=== PATIENT | female | born 1980 | race Caucasian/White ===

== ENCOUNTER 2017-12-06 08:40 | Emergency (ER) | payer MEDICAID, OTHER ==
[~2017-12-06] VITALS: Ht 160 cm; Wt 75.0 kg
[~2017-12-06 08:40] MED LIST: GUAI120L55 PO; HYDR-569 PO; METH4TAB81 PO; METH500T PO; NAPR-56 PO; TRAZ50TA54 PO
[2017-12-06] MEDS ORDERED: ONDA4TAB6 PO (09:13)
[2017-12-06] MEDS ORDERED: GABA-532 PO (09:13)
[2017-12-06] MEDS ORDERED: normal saline 1000ML IV soln IVB ONE (09:15)
[2017-12-06] MEDS ORDERED: ondansetron/PF 4mg/2ml inj IV ONE (09:15)
[2017-12-06] MEDS ORDERED: gabapentin 400mg capsule PO ONE (09:15)
[2017-12-06 09:30] LABS: BASOPHILS # (AUTO) 0.1 X10'3 (0-0.2); BASOPHILS % (AUTO) 0.9 % (0-1); EOSINOPHILS % (AUTO) 0.3 % (0-6); HEMATOCRIT 42.2 % (35.0-45.0); HEMOGLOBIN 14.5 g/dl (12.0-16.0); LYMPHOCYTES % (AUTO) 22.9 % (21-51); MEAN CORPUSCULAR HEMOGLOBIN 32.1 PG (27.0-31.0); MEAN CORPUSCULAR HGB CONC 34.4 % (33.0-36.5); MEAN CORPUSCULAR VOLUME 93.3 FL (78-98); MEAN PLATELET VOLUME 7.1 FL (7.4-10.4); MONOCYTES # (AUTO) 0.4 X10'3 (0-0.9); MONOCYTES % (AUTO) 4.6 % (2-12); NEUTROPHILS # (AUTO) 6.3 X10'3 (1.8-7.7); NEUTROPHILS % (AUTO) 71.3 % (42-75); PLATELET COUNT 322 X10'3 (140-440); RED BLOOD COUNT 4.52 X10'6 (4.20-5.60); WHITE BLOOD COUNT 8.8 X10'3 (4.5-11.0)
[2017-12-06 09:49] LABS: ALANINE AMINOTRANSFERASE 55 U/L (12-78); ALBUMIN 3.7 G/DL (3.4-5.0); ALBUMIN/GLOBULIN RATIO 1.1 (1.1-1.5); ALKALINE PHOSPHATASE 64 IU/L (46-116); ANION GAP 9 (8-16); ASPARTATE AMINO TRANSFERASE 46 U/L (10-37); BILIRUBIN,TOTAL 0.5 MG/DL (0.1-1.0); BLOOD UREA NITROGEN 6 MG/DL (7-18); BUN/CREATININE RATIO 6.9 (6.6-38.0); CALCIUM 8.5 MG/DL (8.5-10.1); CHLORIDE 104 MMOL/L (99-107); CREATININE 0.87 MG/DL (0.40-0.90); GLUCOSE 117 MG/DL (70-104); POTASSIUM 3.2 MMOL/L (3.5-5.1); SODIUM 139 MMOL/L (135-145); TOTAL CARBON DIOXIDE 25.6 MMOL/L (24-32); eGFR 73 ML/MIN
[2017-12-06] MEDS ORDERED: potassium Cl 20 mEq SR tablet PO STA (09:54)
[2017-12-06] MEDS ORDERED: gabapentin 100mg capsule PO ONE (10:10)
[2017-12-06] MEDS ORDERED: acetaminophen 325mg tablet PO ONE (10:25)
[2017-12-06 10:36] VITALS: BP 125/80
== END 2017-12-06 10:36 | disposition home or self-care (01) ==
LOC: ER 08:40
DX: F10.10 Alcohol abuse, uncomplicated (principal); G89.29 Other chronic pain; Z98.51 Tubal ligation status; Z56.0 Unemployment, unspecified
CPT/HCPCS: 36415; 80053; 85025; 96374; 99284; J2405; J7030

== ENCOUNTER 2018-11-04 03:42 | Emergency (ER) | payer BC ==
[~2018-11-04] VITALS: Ht 160 cm; Wt 72.0 kg
[~2018-11-04 03:42] MED LIST changes: +GABA-532 PO; +HYDR-4383 PO; -HYDR-569 PO; +LORA-269 PO; +ONDA4TAB6 PO
[2018-11-04] MEDS ORDERED: ketorolac trometh inj. 60 MG/2 ML VIAL IM ONE (04:10)
[2018-11-04] MEDS ORDERED: acetaminophen 325mg tablet PO ONE (04:10)
[2018-11-04] MEDS ORDERED: ondansetron 4mg rapidly disintigrating tab PO ONE (04:10)
[2018-11-04] MEDS ORDERED: pantoprazole 40mg Tablet.DR PO ONE (04:15)
[2018-11-04] MEDS ORDERED: famotidine 20mg tablet PO ONE (04:15)
[2018-11-04] MEDS ORDERED: proMETHazine 25mg tablet PO ONE (05:05)
[2018-11-04] MEDS ORDERED: ONDA8TAB9 PO (06:00)
[2018-11-04] MEDS ORDERED: PANT-47 PO (06:00)
[2018-11-04 06:24] VITALS: BP 109/66
== END 2018-11-04 06:25 | disposition home or self-care (01) ==
LOC: ER 03:43
DX: K29.20 Alcoholic gastritis without bleeding (principal); F10.10 Alcohol abuse, uncomplicated; G89.29 Other chronic pain; Z98.890 Other specified postprocedural states; Z98.51 Tubal ligation status; Z79.899 Other long term (current) drug therapy; Y90.9 Presence of alcohol in blood, level not specified; Z56.0 Unemployment, unspecified
CPT/HCPCS: 70450; 96372; 99284; J1885; Q0169

== ENCOUNTER 2018-12-11 11:26 | Emergency (ER) | payer BC ==
[~2018-12-11] VITALS: Ht 160 cm; Wt 70.9 kg
[~2018-12-11 11:26] MED LIST changes: +ONDA8TAB9 PO; +PANT-47 PO
--- NOTE | 2018-12-11 11:49 | NUR ---
pt states that sometimes she wishes she was . She states that she doesnt want to kill her self and that statesshe "doesn't have the balls to do it" She states that she get in a family argument after falling in the shower about her drinking and taking xanax. Family states that she had 4 xanax this morning. Family and patient are unsure of how much she drank.
[2018-12-11 12:00] LABS: URINE HCG NEGATIVE (NEG)
[2018-12-11 12:01] LABS: CLARITY,URINE CLEAR (Clear); COLOR,URINE YELLOW (Yellow); GLUCOSE, URINE NEGATIVE (Neg); KETONES,URINE NEGATIVE (Neg); LEUKOCYTE ESTERASE ,URINE NEGATIVE (Neg); NITRITES, URINE NEGATIVE (Neg); OCCULT BLOOD,URINE NEGATIVE (Neg); PH,URINE 6.5 (4.8-8.0); PROTEIN,URINE NEGATIVE (Neg); UROBILINOGEN,URINE 0.2 E.U/dL (0.2-1.0)
[2018-12-11 12:03] LABS: UA COLLECTION TYPE NON-SPECIFIED
[2018-12-11 12:16] LABS: URINE AMPHETAMINE SCREEN NEGATIVE (Neg); URINE BARBITUATE SCREEN NEGATIVE (Neg); URINE BENZODIAZEPINES SCREEN NEGATIVE (Neg); URINE CANNABINOID SCREEN NEGATIVE (Neg); URINE COCAINE SCREEN NEGATIVE (Neg); URINE METHADONE SCREEN NEGATIVE (Neg); URINE OPIATE SCREEN NEGATIVE (Neg); URINE PHENCYCLIDINE SCREEN NEGATIVE (Neg)
[2018-12-11 12:18] LABS: BASOPHILS % (AUTO) 0.5 % (0-1); EOSINOPHILS # (AUTO) 0.3 X10'3 (0-0.9); EOSINOPHILS % (AUTO) 3.7 % (0-6); HEMATOCRIT 45.9 % (35.0-45.0); HEMOGLOBIN 15.6 g/dl (12.0-16.0); MEAN CORPUSCULAR HEMOGLOBIN 31.8 PG (27.0-31.0); MEAN CORPUSCULAR VOLUME 93.5 FL (78-98); MEAN PLATELET VOLUME 7.4 FL (7.4-10.4); MONOCYTES # (AUTO) 0.4 X10'3 (0-0.9); MONOCYTES % (AUTO) 4.6 % (2-12); NEUTROPHILS # (AUTO) 4.8 X10'3 (1.8-7.7); NEUTROPHILS % (AUTO) 56.2 % (42-75); PLATELET COUNT 287 X10'3 (140-440); RED BLOOD COUNT 4.92 X10'6 (4.20-5.60); RED CELL DISTRIBUTION WIDTH 13.6 % (11.5-14.5); WHITE BLOOD COUNT 8.6 X10'3 (4.5-11.0)
[2018-12-11 12:32] LABS: ALANINE AMINOTRANSFERASE 48 U/L (12-78); ALBUMIN 3.7 G/DL (3.4-5.0); ALBUMIN/GLOBULIN RATIO 0.9 (1.1-1.5); ALKALINE PHOSPHATASE 76 IU/L (46-116); ANION GAP 12 (8-16); ASPARTATE AMINO TRANSFERASE 30 U/L (10-37); BILIRUBIN,TOTAL 0.2 MG/DL (0.1-1.0); BLOOD UREA NITROGEN 10 MG/DL (7-18); BUN/CREATININE RATIO 11.8 (6.6-38.0); CALCIUM 8.5 MG/DL (8.5-10.1); CHLORIDE 106 MMOL/L (99-107); CREATININE 0.85 MG/DL (0.40-0.90); GLUCOSE 86 MG/DL (70-104); POTASSIUM 3.6 MMOL/L (3.5-5.1); SODIUM 144 MMOL/L (135-145); TOTAL CARBON DIOXIDE 26.5 MMOL/L (24-32); TOTAL PROTEIN 7.6 G/DL (6.4-8.2); eGFR 74 ML/MIN
[2018-12-11] MEDS ORDERED: diphenhydrAMINE 50 mg/ml inj IM ONE ×2 (12:40)
[2018-12-11] MEDS ORDERED: LORazepam 2 mg/ml vial IM ONE ×2 (12:40)
[2018-12-11] MEDS ORDERED: haloperidol lactate 5mg/ml inj IM ONE ×2 (12:40)
[2018-12-11 12:41] LABS: ETHANOL 0.266 GM/DL (0.0-0.010)
[2018-12-11 12:42] LABS: ACETAMINOPHEN < 2.0 UG/ML (10-30)
--- NOTE | 2018-12-11 12:58 | NUR ---
VERBAL ORDER RECIEVED FOR B50-2 AND BEHAVIORAL RESTRAINTS IF NEEDED. PT HAS FAMILY AT BEDSIDE
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
--- NOTE | 2018-12-11 14:30 | NUR ---
pt daughter phone is [phone]
--- NOTE | 2018-12-11 18:01 | NUR ---
Patient s/o at pt bedside
--- NOTE | 2018-12-11 19:18 | NUR ---
Patient up and walked to restroom with tech
[2018-12-11] MEDS ORDERED: ALPR1TAB2 PO (19:36)
--- NOTE | 2018-12-11 19:47 | NUR ---
telepsych called to set up consult
--- NOTE | 2018-12-11 20:09 | NUR ---
Dr. Wong Cotto is on tele psych talking to pt and s/o
--- NOTE | 2018-12-11 20:51 | NUR ---
Dr. Wong Cotto recommends that the patient be admitted to a psychatric facility
--- NOTE | 2018-12-11 21:24 | NUR ---
Laying in bed on side, eyes closed, resp are even and unlabored, appearing to sleep. Will continue to monitor for changes.
--- NOTE | 2018-12-11 21:38 | NUR ---
Rec'd tele psych consult fax, endorsed to ERP.
--- NOTE | 2018-12-11 22:30 | NUR ---
Continues to rest with eyes closed, appearing to sleep, will monitor.
--- NOTE | 2018-12-11 23:53 | NUR ---
Laying in bed with eyes closed, resp even and unlabored, appearing to sleep without new concerns noted. Will continue to monitor for changes.
[2018-12-12] MEDS ORDERED: ALPRAZolam 0.5mg tablet PO PRN (05:30)
[2018-12-12] MEDS ORDERED: hydrOXYzine 25 MG tablet PO PRN (05:35)
[2018-12-12] MEDS ORDERED: zolpidem 5mg tablet PO PRN (05:35)
[2018-12-12] MEDS ORDERED: levoTHYROXINE 75mcg tablet PO SCH (07:00)
--- NOTE | 2018-12-12 07:30 | NUR ---
Pt reports that she is not suicidal and is asking to go home. Pt reports headache and requised motrin. This was requested from .
[2018-12-12] MEDS ORDERED: ibuprofen tablet 400 MG TABLET PO ONE (07:35)
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
[2018-12-12] MEDS ORDERED: gabapentin 400mg capsule PO SCH (08:00)
[2018-12-12] MEDS ORDERED: docusate sod 250mg capsule PO PRN (08:00)
[2018-12-12] MEDS ORDERED: benztropine 1mg tablet PO SCH (08:00)
[2018-12-12] MEDS ORDERED: topiramate 100mg tablet PO SCH (08:00)
--- NOTE | 2018-12-12 08:15 | NUR ---
Pt eating lunch and Michelle with [facility] going to evaluate patient.
[2018-12-12 09:53] VITALS: BP 111/73
[2018-12-12] MEDS ORDERED: topiramate 25mg tablet PO SCH (21:00)
== END 2018-12-12 09:54 | disposition home or self-care (01) ==
LOC: ER 11:26
DX: F10.129 Alcohol abuse with intoxication, unspecified (principal); I10 Essential (primary) hypertension; G89.29 Other chronic pain; Z98.51 Tubal ligation status; Z98.890 Other specified postprocedural states; Z79.899 Other long term (current) drug therapy; Y90.9 Presence of alcohol in blood, level not specified; Z56.0 Unemployment, unspecified
CPT/HCPCS: 36415; 70450; 80053; 80305; 80320; 80329; 81003; 81025; 84443; 85025; 93005; 96372; 99284; J1200; J1630; J2060

== ENCOUNTER 2018-12-13 18:25 | Emergency (ER) | payer BC ==
[~2018-12-13] VITALS: Ht 160 cm; Wt 75.0 kg
[~2018-12-13 18:25] MED LIST changes: +ALPR1TAB2 PO
[2018-12-13 18:51] VITALS: BP 124/90
[2018-12-14] MEDS ORDERED: GABA-532 PO (03:02)
[2018-12-14] MEDS ORDERED: IBUP-1985 PO (03:02)
[2018-12-14] MEDS ORDERED: ONDA8TAB6 PO (03:02)
== END 2018-12-13 19:21 | disposition home or self-care (01) ==
LOC: ER 18:25
DX: F10.229 Alcohol dependence with intoxication, unspecified (principal); M54.2 Cervicalgia; M54.9 Dorsalgia, unspecified; G89.29 Other chronic pain; Z79.899 Other long term (current) drug therapy; Z98.51 Tubal ligation status; Z56.0 Unemployment, unspecified; W18.39XA Other fall on same level, initial encounter; Y93.89 Activity, other specified; Y92.89 Other specified places as the place of occurrence of the external cause; Y99.8 Other external cause status
CPT/HCPCS: 99281

== ENCOUNTER 2018-12-14 01:40 | Emergency (ER) | payer BC ==
[~2018-12-14] VITALS: Ht 160 cm; Wt 72.7 kg
[~2018-12-14 01:40] MED LIST changes: -GABA-532 PO; -GUAI120L55 PO; -HYDR-4383 PO; -LORA-269 PO; -METH4TAB81 PO; -METH500T PO; -NAPR-56 PO; -ONDA4TAB6 PO; -ONDA8TAB9 PO; -PANT-47 PO; -TRAZ50TA54 PO
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
[2018-12-14] MEDS ORDERED: ondansetron/PF 4mg/2ml inj IV ONE (02:55)
[2018-12-14] MEDS ORDERED: ibuprofen tablet 400 MG TABLET PO ONE (02:55)
[2018-12-14] MEDS ORDERED: GABA-532 PO (03:02)
[2018-12-14] MEDS ORDERED: ONDA8TAB6 PO (03:02)
[2018-12-14] MEDS ORDERED: IBUP-1985 PO (03:02)
--- NOTE | 2018-12-14 03:11 | NUR ---
Just gave patient Motrin and Zofran, will continue to monitor.
[2018-12-14 03:41] VITALS: BP 127/93
== END 2018-12-14 03:44 | disposition home or self-care (01) ==
LOC: ER 01:40
DX: R11.10 Vomiting, unspecified (principal); F10.10 Alcohol abuse, uncomplicated; G89.29 Other chronic pain; Z56.0 Unemployment, unspecified; Z98.890 Other specified postprocedural states; Z98.51 Tubal ligation status; Z79.899 Other long term (current) drug therapy; Y90.9 Presence of alcohol in blood, level not specified
CPT/HCPCS: 96374; 99283; J2405

== ENCOUNTER 2019-07-09 13:25 | Emergency (ER) | payer BC ==
[~2019-07-09] VITALS: Ht 160 cm; Wt 80.0 kg
[~2019-07-09 13:25] MED LIST changes: +GABA-532 PO; +IBUP-1985 PO; +ONDA8TAB6 PO
--- NOTE | 2019-07-09 13:40 | NUR ---
Jeovany LOAIZA AT BEDSIDE TO [facility]
[2019-07-09] MEDS ORDERED: TETanus/Pertussis (Acell)/Diphther VAC/PF (Tdap-Adult) 0.5ml syringe IM ONE (13:45)
[2019-07-09] MEDS ORDERED: HYDR-4383 PO (14:44)
[2019-07-09 15:04] VITALS: BP 150/118
== END 2019-07-09 15:00 | disposition home or self-care (01) ==
LOC: ER 13:25
DX: S92.514A Nondisplaced fracture of proximal phalanx of right lesser toe(s), initial encounter for closed fracture (principal); S81.811A Laceration without foreign body, right lower leg, initial encounter; S90.812A Abrasion, left foot, initial encounter; S90.811A Abrasion, right foot, initial encounter; S80.812A Abrasion, left lower leg, initial encounter; S80.811A Abrasion, right lower leg, initial encounter; G89.29 Other chronic pain; F41.9 Anxiety disorder, unspecified; F10.10 Alcohol abuse, uncomplicated; Z98.890 Other specified postprocedural states; Z98.51 Tubal ligation status; Z56.0 Unemployment, unspecified; Z79.899 Other long term (current) drug therapy; W25.XXXA Contact with sharp glass, initial encounter; Y93.89 Activity, other specified; Y92.89 Other specified places as the place of occurrence of the external cause; Y99.8 Other external cause status; Y90.9 Presence of alcohol in blood, level not specified
CPT/HCPCS: 12002; 73660; 90471; 99284

== ENCOUNTER 2019-10-20 19:01 | Emergency (ER) | payer BC ==
[~2019-10-20] VITALS: Ht 160 cm; Wt 69.5 kg
[~2019-10-20 19:01] MED LIST changes: +HYDR-4383 PO
[2019-10-20 19:02] VITALS: BP 140/84
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
--- NOTE | 2019-10-20 19:28 | NUR ---
Patient is verbally abusive and leaving exam room, non-cooperative. I have called PD to respond.
--- NOTE | 2019-10-20 19:28 | NUR ---
pt agitated, wanting to leave w/o medical treatment. in room to see pt.
[2019-10-20] MEDS ORDERED: ibuprofen 200mg tablet PO ONE (19:35)
--- NOTE | 2019-10-20 19:48 | NUR ---
Pt given wrist/hand splint per MD order. Pt asked for, then refused 600 mg ibuprofen. Pt left ER, but but accepted offer of a taxi to home address [address]. Pt became belligerent and loud in lobby. Security escorted patient out of ER to meet taxi. [employer] notified that patient left while in an altered state.
== END 2019-10-20 20:01 | disposition home or self-care (01) ==
LOC: ER 19:01
DX: S62.231A Other displaced fracture of base of first metacarpal bone, right hand, initial encounter for closed fracture (principal); G89.29 Other chronic pain; Z56.0 Unemployment, unspecified; Z98.890 Other specified postprocedural states; Z98.51 Tubal ligation status; W22.8XXA Striking against or struck by other objects, initial encounter; Y93.89 Activity, other specified; Y92.89 Other specified places as the place of occurrence of the external cause; Y99.9 Unspecified external cause status
CPT/HCPCS: 73120; 99283

== ENCOUNTER 2019-10-30 23:08 | Emergency (ER) | payer BC ==
[~2019-10-30] VITALS: Ht 172.7 cm; Wt 80.0 kg
[2019-10-30 23:09] VITALS: BP 135/80
== END 2019-10-30 23:42 ==
LOC: ER 23:08
DX: F10.129 Alcohol abuse with intoxication, unspecified (principal); G89.29 Other chronic pain; F41.9 Anxiety disorder, unspecified; Z98.51 Tubal ligation status; Z98.890 Other specified postprocedural states; Z56.0 Unemployment, unspecified; Z79.899 Other long term (current) drug therapy; V89.2XXA Person injured in unspecified motor-vehicle accident, traffic, initial encounter; Y93.89 Activity, other specified; Y92.89 Other specified places as the place of occurrence of the external cause; Y99.8 Other external cause status; Y90.9 Presence of alcohol in blood, level not specified
CPT/HCPCS: 99283

== ENCOUNTER 2019-12-20 04:37 | Emergency (ER) | payer BC ==
[~2019-12-20] VITALS: Ht 160 cm; Wt 72.7 kg
[2019-12-20] MEDS ORDERED: LORazepam 2 mg/ml vial IV ONE (05:00)
[2019-12-20] MEDS ORDERED: pantoprazole 40 MG vial IV ONE (05:00)
[2019-12-20] MEDS ORDERED: normal saline 1000ML IV soln IVB ONE ×2 (05:00→06:45)
[2019-12-20] MEDS ORDERED: ondansetron/PF 4mg/2ml inj IV ONE (05:00)
[2019-12-20 05:15] LABS: BASOPHILS # (AUTO) 0.1 X10'3 (0-0.2); BASOPHILS % (AUTO) 0.7 % (0-1); EOSINOPHILS # (AUTO) 0.1 X10'3 (0-0.9); EOSINOPHILS % (AUTO) 0.9 % (0-6); HEMATOCRIT 42.2 % (35.0-45.0); LYMPHOCYTES # (AUTO) 2.8 X10'3 (1.1-4.8); LYMPHOCYTES % (AUTO) 29.7 % (21-51); MEAN CORPUSCULAR HEMOGLOBIN 33.2 PG (27.0-31.0); MEAN CORPUSCULAR HGB CONC 35.5 g/dL (33.0-36.5); MEAN CORPUSCULAR VOLUME 93.7 FL (78-98); MEAN PLATELET VOLUME 7.3 FL (7.4-10.4); MONOCYTES # (AUTO) 0.7 X10'3 (0-0.9); MONOCYTES % (AUTO) 6.9 % (2-12); NEUTROPHILS # (AUTO) 5.9 X10'3 (1.8-7.7); NEUTROPHILS % (AUTO) 61.8 % (42-75); PLATELET COUNT 310 X10'3 (140-440); RED BLOOD COUNT 4.51 X10'6 (4.20-5.60); RED CELL DISTRIBUTION WIDTH 13.3 % (11.5-14.5); WHITE BLOOD COUNT 9.5 X10'3 (4.5-11.0)
[2019-12-20 05:22] LABS: HCG SERUM QL NEGATIVE
[2019-12-20 05:34] LABS: ALANINE AMINOTRANSFERASE 35 U/L (12-78); ALBUMIN 3.6 G/DL (3.4-5.0); ALKALINE PHOSPHATASE 70 IU/L (46-116); ANION GAP 15 (8-16); ASPARTATE AMINO TRANSFERASE 41 U/L (10-37); BILIRUBIN,TOTAL 0.5 MG/DL (0.1-1.0); BLOOD UREA NITROGEN 6 MG/DL (7-18); BUN/CREATININE RATIO 7.3 (6.6-38.0); CALCIUM 8.8 MG/DL (8.5-10.1); CHLORIDE 105 MMOL/L (99-107); CREATININE 0.82 MG/DL (0.40-0.90); ETHANOL 0.035 GM/DL (0.0-0.010); GLUCOSE 93 MG/DL (70-104); LIPASE 116 U/L (73-393); POTASSIUM 3.3 MMOL/L (3.5-5.1); SODIUM 143 MMOL/L (135-145); TOTAL CARBON DIOXIDE 23.1 MMOL/L (24-32); TOTAL PROTEIN 7.2 G/DL (6.4-8.2); eGFR 77 ML/MIN
[2019-12-20] MEDS ORDERED: PANT-47 PO (05:46)
[2019-12-20] MEDS ORDERED: metoclopramide 5 mg/ml inj IV ONE (06:45)
[2019-12-20 06:59] VITALS: BP 158/88
== END 2019-12-20 08:16 | disposition home or self-care (01) ==
LOC: ER 04:38
DX: K29.20 Alcoholic gastritis without bleeding (principal); F10.10 Alcohol abuse, uncomplicated; F41.9 Anxiety disorder, unspecified; G89.29 Other chronic pain; F17.200 Nicotine dependence, unspecified, uncomplicated; Z79.899 Other long term (current) drug therapy; Z79.1 Long term (current) use of non-steroidal anti-inflammatories (NSAID); Z98.890 Other specified postprocedural states; Z98.51 Tubal ligation status; Z56.0 Unemployment, unspecified; Y90.9 Presence of alcohol in blood, level not specified
CPT/HCPCS: 36415; 80053; 80320; 83690; 84703; 85025; 96361; 96374; 96375; 99283; C9113; J2060; J2405; J2765; J7030

== ENCOUNTER 2021-02-16 19:54 | Emergency (ER) | payer BC, MEDICAID ==
[~2021-02-16] VITALS: Ht 160 cm; Wt 59.3 kg
[~2021-02-16 19:54] MED LIST changes: +PANT-47 PO
[2021-02-16] MEDS ORDERED: cephalexin 250mg capsule PO ONE (20:55)
[2021-02-16] MEDS ORDERED: sulfamethoxazole/trimethoprim DS (800/160mg) tablet PO ONE (20:55)
[2021-02-16] MEDS ORDERED: ketorolac trometh inj. 60 MG/2 ML VIAL IM ONE (20:55)
[2021-02-16] MEDS ORDERED: SULF1TAB45 PO (20:56)
[2021-02-16] MEDS ORDERED: CEPH-585 PO (20:56)
[2021-02-16 21:35] VITALS: BP 150/65
== END 2021-02-16 21:37 | disposition home or self-care (01) ==
LOC: ER 19:54
DX: J34.0 Abscess, furuncle and carbuncle of nose (principal); L03.811 Cellulitis of head [any part, except face]; B95.8 Unspecified staphylococcus as the cause of diseases classified elsewhere; G89.29 Other chronic pain; Z98.890 Other specified postprocedural states; Z56.0 Unemployment, unspecified; Z98.51 Tubal ligation status; Z79.899 Other long term (current) drug therapy; Z79.2 Long term (current) use of antibiotics
CPT/HCPCS: 96372; 99283; J1885

== ENCOUNTER 2024-01-12 07:12 | Emergency (ER) | payer MEDICAID ==
[~2024-01-12] VITALS: Ht 162.6 cm; Wt 60.8 kg
[2024-01-12 07:32] VITALS: BP 132/97; PULSE 83; RESP 18; O2SAT 98
[2024-01-12] MEDS ORDERED: ibuprofen tablet 400 MG TABLET PO ONE (08:25)
[2024-01-12] MEDS ORDERED: IBUP-1985 PO (08:28)
[2024-01-12] MEDS ORDERED: ibuprofen 200mg tablet PO ONE (08:30)
[2024-01-12 08:49] VITALS: TEMP 97.1
== END 2024-01-12 08:51 | disposition home or self-care (01) ==
LOC: ER 07:13
DX: S66.811A Strain of other specified muscles, fascia and tendons at wrist and hand level, right hand, initial encounter (principal); X58.XXXA Exposure to other specified factors, initial encounter; Y93.89 Activity, other specified; Y92.89 Other specified places as the place of occurrence of the external cause; Y99.8 Other external cause status
CPT/HCPCS: 73030; 99283; A4565

== ENCOUNTER 2025-08-28 02:30 | Emergency (ER) | payer MEDICAID ==
[~2025-08-28] VITALS: Ht 162.6 cm; Wt 58.6 kg
[~2025-08-28 02:30] MED LIST changes: -IBUP-1985 PO; +IBUP600T52 PO
[2025-08-28 02:31] VITALS: TEMP 97.7
[2025-08-28 02:52] LABS: MEAN PLATELET VOLUME 7.1 FL (7.4-10.4); RED CELL DISTRIBUTION WIDTH 13.6 % (11.5-14.5)
[2025-08-28 03:04] LABS: CREATININE 0.88 MG/DL (0.40-0.90); TOTAL CARBON DIOXIDE 33.2 MMOL/L (24-32); eCRCL 69 ML/MIN; eGFR 69 ML/MIN
[2025-08-28] MEDS: ondansetron/PF 4mg/2ml inj IV ONE (03:08)
[2025-08-28] MEDS: normal saline 1000ml 1,000 ML IV ONE (03:08)
[2025-08-28] MEDS: ketorolac trometh 30MG/ML vial 30 MG/ML VIAL IV ONE ×2 (03:12→04:54)
[2025-08-28] MEDS: diltiazem 5mg/ml 5ml inj. IV ONE (03:49)
[2025-08-28 03:50] LABS: URINE HCG NEGATIVE (NEG)
[2025-08-28] MEDS: HYDROmorphone inj. 0.5 MG/0.5 ML DISP.SYRIN IV ONE (03:53)
[2025-08-28 04:23] LABS: LEUKOCYTE ESTERASE ,URINE NEGATIVE (Neg); NITRITES, URINE POSITIVE (Neg); OCCULT BLOOD,URINE NEGATIVE (Neg)
[2025-08-28 04:32] LABS: UA COLLECTION TYPE CLN CATCH MIDSTREAM
[2025-08-28 04:35] LABS: SQUAMOUS EPITHELIAL CELL,UR MODERATE /LPF (FEW)
--- NOTE | 2025-08-28 04:43 | Physician Documentation ---
History of Present Illness Chief Complaint: Flank Pain Stated Complaint: KIDNEY DISCOMFORT Time Seen by MD: 02:51 Primary Medical Doctor: NO DOCTOR Mode of Arrival: POV HPI Patient is here for right flank pain. It radiates to the right lower quadrant. It started two days ago was mild and tonight it is severe. No fevers or chills or vomiting. She denies dysuria urgency frequency. She is said to kidney stones in the past. She was able to pass that has without any intervention. Her pain tonight is similar to previous kidney stones. Medication Reconciliation Allergies: Coded Allergies: No Known Allergies (Unverified , 01/12/24) Scheduled Alprazolam (Xanax), 1 TAB PO TID PRN, (Reported) Hydrocodone/Acetaminophen ([place] 5-325 Tablet), 1 TAB PO TID PRN Ibuprofen (Ibuprofen), 1 TAB PO Q8H Ibuprofen (Ibuprofen), 1 TAB PO Q8H Pantoprazole Sodium (PROTONIX tablet), 1 TAB PO DAILY Scheduled PRN Gabapentin (Gabapentin), 1 CAP PO TID PRN for alcohol withdrawal Ondansetron Hcl (Zofran), 8 MG PO Q8HPRN PRN for nausea/vomiting Past Medical History Past Medical History: Chronic Pain, Anxiety Past Surgical History: orthopedic surgeries, tubal ligation, other Alcohol Use: Abuse Drug Use: none Lives with: Family Lives In: Home Occupation: unemployed Physical Exam Vital Signs: Temperature: 97.7, Source: Oral, Heart Rate: 88, Respiratory Rate: 16, BP: 126/89, Pulse Oximetry: 98, Weight: 58.640 Oxygen Flow Rate: 0 Physical Exam General: Awake and Alert, no acute distress. Holding the right side appears to have significant discomfort. HEENT: Conjunctiva pink, Sclera clear, Mucus Membranes moist. Neck: Supple without masses and tenderness. Resp: Unlabored. Lungs clear to auscultation bilaterally. Heart: Regular Rate and rhythm, normal S1 and S2 without murmur, rub or gallop. Abdomen: Soft and non tender no organomegaly Extremities: No cyanosis,clubbing or edema. Skin: Warm and Dry. Neuro: GCS 15; no focal deficits Progress Results/Orders Results/Orders Orders - BREE HERNANDEZ MD Cult Urine + [place] [address] (08/28/25 04:35) Ketorolac Trometh 30mg/Ml Vial (Toradol (08/28/25 04:40) Ct Abdomen Pelvis (08/28/25 04:37) Completed Orders - BREE HERNANDEZ MD Hcg, Ur Ql (08/28/25 02:38) Cbc/Diff (08/28/25 02:38) CMP (08/28/25 02:38) Normal Saline 1000ml (0.9% Sodium Chlori (08/28/25 02:55) Ketorolac Trometh 30mg/Ml Vial (Toradol (08/28/25 02:55) Ondansetron Inj. (Zofran 4mg/2ml Vial) (08/28/25 02:55) Hydromorphone 1 Mg/Ml/Pf (Dilaudid Inj.) (08/28/25 02:55) Diltiazem Iv (Cardizem Iv 5mg/Ml Inj.) (08/28/25 03:35) Hydromorphone 0.5 Mg/0.5 Ml/Pf (Dilaudid (08/28/25 03:40) Ua W/Microscopic, Cult If Ind (08/28/25 03:19) Medications Received in ER Medications (Trade) Dose Ordered Sig/Pj Route PRN Reason Start Time Stop Time Status Last Admin Dose Admin Sodium Chloride 1,000 ml @ 1,000 mls/hr ONCE ONCE IV 08/28/25 02:55 08/28/25 03:54 DC 08/28/25 03:08 1,000 MLS/HR (Toradol inj. 30mg/ml) 15 mg ONCE ONCE IV 08/28/25 02:55 08/28/25 02:56 DC 08/28/25 03:12 15 MG (Zofran 4mg/2ml vial) 4 mg ONCE ONCE IV 08/28/25 02:55 08/28/25 02:56 DC 08/28/25 03:08 4 MG (Dilaudid inj.) 1 mg ONCE ONCE IV 08/28/25 02:55 08/28/25 02:56 DC 08/28/25 03:11 1 MG (Dilaudid inj.) 0.5 mg ONCE ONCE IV 08/28/25 03:40 08/28/25 03:47 DC 08/28/25 03:53 0.5 MG Vital Signs 08/28/25 08/28/25 08/28/257/25 02:31 03:11 03:12 03:14 Temp 97.7 Pulse 109 94 Resp 18 16 16 16 B/P (MAP) 140/90 117/73 (88) Pulse Ox 99 92 O2 Flow Rate 0 0 08/28/25 08/28/25 08/28/25 03:15 03:53 03:59 Pulse 88 Resp 16 16 16 B/P (MAP) 126/89 (101) Pulse Ox 98 O2 Flow Rate 0 Laboratory Tests Test 08/28/25 02:40 08/28/25 03:19 White Blood Count 8.2 Red Blood Count 4.59 Hemoglobin 14.1 Hematocrit 40.7 Mean Corpuscular Volume 88.9 Mean Corpuscular Hemoglobin 30.7 Mean Corpuscular Hemoglobin Concent 34.5 Red Cell Distribution Width 13.6 Platelet Count 289 Mean Platelet Volume 7.1 L Neutrophils (%) (Auto) 68.7 Lymphocytes (%) (Auto) 21.8 Monocytes (%) (Auto) 6.5 Eosinophils (%) (Auto) 1.9 Basophils (%) (Auto) 1.1 H Neutrophils # (Auto) 5.6 Lymphocytes # (Auto) 1.8 Monocytes # (Auto) 0.5 Eosinophils # (Auto) 0.2 Basophils # (Auto) 0.1 CBC Comment Sodium Level 139 Potassium Level 3.8 Chloride Level 101 Carbon Dioxide Level 33.2 H Anion Gap 5 L Blood Urea Nitrogen 14 Creatinine 0.88 Estimated GFR/1.73 m2 69 BUN/Creatinine Ratio 15.9 Glucose Level 104 Calcium Level 8.9 Total Bilirubin 0.4 Aspartate Amino Transf (AST/SGOT) 21 Alanine Aminotransferase (ALT/SGPT) 22 Alkaline Phosphatase 80 Total Protein 7.4 Albumin 3.5 Globulin 3.9 Albumin/Globulin Ratio 0.9 L Chemistry Comments Urine Specimen Description Cln catch midstream Urine Color Yellow Urine Clarity Clear Urine pH 6.0 Urine Specific [place] 1.025 Urine Protein Negative Urine Glucose (UA) Negative Urine Ketones Negative Urine Occult Blood Negative Urine Nitrite Positive H Urine Bilirubin Negative Urine Urobilinogen 0.2 Urine Leukocyte Esterase Negative Urine RBC 0-2 Urine WBC 0-4 Urine Squamous Epithelial Cells Moderate Urine Bacteria 4+ Urine Culture Indicated Indicated Volume Urine Centrifuged 10 ml Urine HCG, Qualitative Negative Urine Comment Medical Decision Making Findings Patient is here with right-sided flank pain radiates to the right lower quadrant she says it is similar to previous kidney stones. Her labs are reassuring. Her urinalysis does not show blood. So I ordered a CT scan of the abdomen and pelvis. His she was given Toradol Dilaudid IV fluids for pain control. Her CT scan does not show evidence of kidney stone. Her urinalysis is positive for nitrites so she is given ceftriaxone presumptive diagnosis of pyelonephritis. Given a prescription for [place] Zofran in cefdinir. Departure Disposition: HOME / SELF CARE / HOMELESS Impression: Primary Impression: Acute pyelonephritis Condition: Stable Discharge Instructions: Pyelonephritis, Adult Referrals: NO PRIMARY CARE PROVIDER (PCP) Prescriptions Cefdinir* (Cefdinir*) 300 Mg Capsule 1 CAP PO Q12H for 7 Days, #14 CAP Prov: BREE HERNANDEZ MD 08/28/25 ONDANSETRON ODT 4mg tablet (ONDANSETRON ODT) 4 Mg Tab.rapdis 1 TAB PO Q6H PRN PRN for nausea/vomiting, #20 TAB 0 Refills Prov: BREE HERNANDEZ MD 08/28/25 Hydrocodone Bit/Acetaminophen 5/325 MG ([place] 5/325 MG) 5 Mg/325 Mg Tablet 1 TAB PO Q6H PRN for pain, #12 TAB Prov: BREE HERNANDEZ MD 08/28/25 Education Educated: Patient, Family Educated regarding: diagnosis, treatment, prognosis, need for follow up Signature Scribe Signature: no scribe Attestation: no scribe BREE HERNANDEZ MD Aug 28, 2025 04:43
--- NOTE | 2025-08-28 05:24 | RADIOLOGY REPORT ---
Exam: CT CT ABDOMEN PELVIS History: Right flank pain COMPARISON: None Technique: Multidetector spiral CT of the abdomen and pelvis was performed from lung bases to pubic symphysis. Axial, coronal and sagittal multiplanar reformats were performed by the technologist on a separate workstation. Radiation Dose : 1. Abdomen/Pelvis: CTDIvol 8.3 mGy, DLP 426 mGy*cm. Findings: Lung Bases: Dependent atelectasis. Normal heart size. No pleural or pericardial effusion. Liver: The liver is normal in size. No focal lesions. Normal hepatic vascular enhancement. Gallbladder and Biliary Tree: Unremarkable Spleen: Unremarkable Pancreas: The pancreas is normal in appearance without focal lesions or abnormal enhancement. Adrenal Glands: Unremarkable Kidneys: No hydronephrosis. Possible mild renal medullary nephrocalcinosis. No discrete renal stones. Bladder: Unremarkable Bowel: The stomach is grossly normal in appearance. Moderate to large volume diffuse colonic stool. The small bowel and colon are normal in caliber and distribution. The appendix is not visualized; however, no secondary findings of acute appendicitis identified. Ascites: Absent Lymphadenopathy: No mesenteric, retroperitoneal or periportal lymphadenopathy. Abdominal Wall and Mesentery: Unremarkable. Vasculature: The visualized abdominal aorta is normal in size and caliber. Abdominal and pelvic vessels demonstrate normal enhancement. Pelvic Organs: Unremarkable Musculoskeletal: Multilevel degenerative changes of the spine, mild. No aggressive focal bony lesions, acute fractures or dislocation. IMPRESSION: No acute abdominal or pelvic finding. Moderate to large volume diffuse colonic stool. Possible mild bilateral renal medullary nephrocalcinosis. No discrete renal stones. No hydronephrosis. Radiation optimization: All CT scans at this facility use at least one of these dose optimization techniques: automated exposure control mA and/or kV adjustment per patient size (includes targeted exams where dose is matched to clinical indication) or iterative reconstruction.
[2025-08-28] MEDS ORDERED: ONDA-243 PO (05:42)
[2025-08-28] MEDS ORDERED: HYDR-3965 PO (05:42)
[2025-08-28] MEDS ORDERED: CEFD300C3 PO (05:42)
[2025-08-28] MEDS: CefTRIAXone/D5W-Rocephin 1gm 50 ML IV ONE (05:47)
[2025-08-28 05:50] VITALS: BP 129/83; PULSE 80; RESP 16; O2SAT 97
== END 2025-08-28 06:28 | disposition home or self-care (01) ==
LOC: ER 02:30
DX: N10 Acute pyelonephritis (principal); G89.29 Other chronic pain; F41.9 Anxiety disorder, unspecified; F10.10 Alcohol abuse, uncomplicated; Z87.442 Personal history of urinary calculi; Z98.51 Tubal ligation status; Z79.899 Other long term (current) drug therapy; Z56.0 Unemployment, unspecified; Y90.9 Presence of alcohol in blood, level not specified
CPT/HCPCS: 36415; 74176; 80053; 81001; 81025; 85025; 87077; 87088; 87186; 96361; 96365; 96375; 96376; 99285; J0696; J1171; J1885; J2405; J7030